=== PATIENT | female | born 1950 | race Caucasian/White ===

== ENCOUNTER 2016-05-31 23:46 | Observation (INO) | payer MEDICARE, OTHER ==
--- NOTE | ~2016-05-31 | HP ---
Unit #: [id number] #: [id number] Patient: SERENA RUGGIERO [id number] [facility] [address] [facility]. [place], [place] [address] [id number] I MR#: [id number] NAME: SERENA RUGGIERO. ROOM: 335 Age: 66 Sex: F Admission Date: 06/01/2016 : 1950 Attending Physician: Alessio Day M.D. Primary Care Physician: Shoaib Roberto M.D. HISTORY AND PHYSICAL CHIEF COMPLAINT Chest pain. HISTORY OF PRESENT ILLNESS MS. Ruggiero is a 66-year-old female with no prior cardiac history. 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 Yesterday morning at 7:30 a.m. she awoke with a headache and diarrhea as well as a steady pain in her upper mid chest radiating to her right upper chest, under her right arm. She took some aspirin and went to temple. She continued to have diarrhea all day. It was slightly better with rest, but no worse with activity. She became very worried throughout the day and then presented to [facility] emergency room at 9:06 p.m. She was given two sublingual nitroglycerin and the pain was relieved. The diarrhea continued until hood fitter today and has since resolved. (1) interview as well as record review. PRIOR CARDIAC TESTING History includes left heart catheterization in 2003 which showed normal coronaries. PAST MEDICAL HISTORY 1. Severe osteoarthritis of the knees which is debilitating. 2. Gastroesophageal reflux disease. 3. Hysterectomy. 4. Cholecystectomy. 5. Hernia repair. 6. Kidney tumor removal. SOCIAL HISTORY The patient is a 40 year smoker, but quit 8 years ago. She denies the use of alcohol or drugs. FAMILY HISTORY Mother with heart failure at age 62. Father with a brain tumor at age 70. Brothers and sisters all alive and well. ALLERGIES No known drug allergies. HOME MEDICATIONS 1. Multivitamin daily. 2. Meloxicam 15 mg daily. REVIEW OF SYSTEMS Unit #: [id number] #: [id number] Patient: SERENA RUGGIERO GENERAL: Denies any fever, chills, flu-like symptoms or unintentional weight loss. SKIN: Denies any rashes, ulcerations or wound. HEADACHES: Yesterday, but resolved. EYES: Denies any sudden change in vision. EARS: Denies any sudden change in hearing. BLEEDING: Denies epistaxis, hemoptysis, hematuria or melena. THROAT: Denies any problems swallowing. LUNGS: Denies any wheeze or cough. CHEST: Positive for pain as described in history of present illness, as well as some palpitations and "pounding" in her chest. No PND or orthopnea. GI: Denies any nausea or vomiting, but did have the diarrhea as described in history of present illness. GENITOURINARY: Has frequency urination, but no burning or urgency. EXTREMITIES: She has a constant swelling in her bilateral lower extremities for which she wears IRASEMA hose. NEUROLOGIC: Denies any numbness, tingling, seizures, stroke-like symptoms, unsteadiness, dizziness or falls. PHYSICAL EXAMINATION GENERAL: Well-developed, well-nourished, white female, in no acute distress, resting in the bed. VITAL SIGNS: Blood pressure is 131/59, heart rate 66, respirations 18, temperature 98.3, oxygen saturation 97% and weight 250 pounds. SKIN: No obvious rashes or ulcerations noted. HEENT: Eyes pupils equally round and reactive to light and accommodation. No xanthelasma. Oral, fair dentition. Moist mucous membranes. No pallor. NECK: No carotid bruits auscultated bilaterally. No jugular venous distension. SPINE: No scoliosis. CHEST: Clear to auscultation bilaterally. No wheezes, rales or rhonchi. CARDIAC: S1 and S2. No murmur, rub, gallop or lift. ABDOMEN: Soft and nontender. Positive bowel sounds. EXTREMITIES: Bilateral pedal pulses +2. No edema, but she does have her bilateral IRASEMA hose on. NEUROLOGIC: Alert and oriented time three. Speech is clear. No obvious neuro deficits. DIAGNOSTIC STUDIES IMAGING: Chest x-ray shows no active disease. LABORATORY: Troponin less than 0.03 as well as 0.05 times 2 at point of care. Sodium 140, potassium 3.7, glucose 99, BUN 23, creatinine 0.9, AST 17, ALT 15, albumin 3.7. PT 10.3, INR 1.0. Hemoglobin 14, hematocrit 42.2, platelets 182, white blood cell count 8.1. ASSESSMENT 1. Chest pain. 2. Obesity. 3. Positive tobacco abuse, former smoker. 4. Diarrhea, resolved. 5. Osteoarthritis of the knees which is severe. 6. Chronic lower extremity swelling. 7. Gastroesophageal reflux disease. PLAN Ms. Ruggiero has been evaluated by Dr. Ruiz, and feels as though this chest pain is atypical. The ACC/AHA guidelines show that she has a 4-10% risk Unit #: [id number] #: [id number] Patient: SERENA RUGGIERO for coronary artery disease. Therefore, we will add a station and an aspirin. We will complete an echocardiogram as well as a Cardiolite stress test today and make further recommendations. She will be discharged home if normal. We will also complete a TSH, hemoglobin A1 and a lipid panel this morning for further risk stratification. Dictated by Sima Armijo A.P.R.N. for Tom Ventura TD: 06/01/2016 11:00 JOB #: [id number] HISTORY AND PHYSICAL Page 1 of 1 X X HISTORY AND PHYSICAL
--- NOTE | ~2016-05-31 | TH ---
Unit #: [id number] #: [id number] Patient: SERENA WILLARD [id number] [address] [address] [id number] I MR#: [id number] NAME: SERENA WILLARD. : 1950 SEX: F STUDY DATE/TIME: 06/01/2016 UNIT: C3A PCU ROOM: 335 STUDY DESCRIPTION: Cardiolite imaging. Attending Physician: Alessio Day M.D. Primary Care Physician: Shoaib Roberto M.D. CARDIOLOGY REPORT EXAM Cardiolite imaging. PROCEDURE The patient underwent nuclear stress test and received a resting dose of 11.14 mCi and a stress dose of 28.3 mCi. On gated imaging the patient appears to have normal wall motion with a preserved ejection fraction. The patient's left ventricular ejection fraction is 67%. On perfusion imaging, comparing rest and stress images, there appears to be decreased tracer uptake seen both in rest and stress imaging involving the inferior wall, with normal wall motion on gated imaging, likely representing an artifact. CONCLUSION 1. No obvious ischemia. 2. Preserved ejection fraction. 3. ECG portion to be dictated separately. 1. Dictated by... Tom Ventura/lilian TD: 06/01/2016 14:30 JOB #: [id number] CARDIOLOGY REPORT Page 1 of 1 X DEL PANDYA MD CARDIOLOGY REPORT
--- NOTE | ~2016-05-31 | DS ---
Unit #: [id number] #: [id number] Patient: SERENA RUGGIERO [id number] [address] [place], [place] [address] [id number] I MR#: [id number] NAME: SERENA RUGGIERO. ROOM: [facility] Age: 66 Sex: F Admission Date: 06/01/2016 : 1950 Discharge Date: 06/01/2016 Attending Physician: Alessio Day M.D. Primary Care Physician: Shoaib Roberto M.D. DISCHARGE SUMMARY ADMITTING DIAGNOSES 1. Chest pain. 2. Obesity. 3. Former positive tobacco abuse. 4. Osteoarthritis. 5. Chronic lower extremity swelling. 6. Gastroesophageal reflux disease. 7. Diarrhea. DISCHARGE DIAGNOSES 1. Noncardiac chest pain, presumed noncardiac based on testing. 2. Obesity. 3. Positive tobacco abuse, former smoker. 4. Osteoarthritis of the knees. 5. Chronic lower extremity swelling. 6. Gastroesophageal reflux disease. DIAGNOSTIC DATA IMAGING: Chest x-ray which shows no active disease. CARDIOVASCULAR: Cardiolite stress test which shows no ischemia and an of 67%. Two-dimensional echocardiogram has been completed and those results are pending at discharge. LABORATORY: Hemoglobin A1c 5.1, TSH 2.74, cholesterol 129, triglycerides 52, LDL 76, HDL 43. Troponin less than 0.03 and prior to that was less than 0.05 times 2 at point of care. Sodium 140, potassium 3.2, BUN 23, creatinine 0.9, AST 17, ALT 15, albumin 3.7, PT 10.3, INR 1.0, hemoglobin 14, hematocrit 42.2, platelets 182, white blood cell count 8.1. HOSPITAL COURSE Ms. Ruggiero is a 66-year-old female who has just retired 4 months ago. She woke up yesterday morning with a steady pain in her chest as well as some headache and frequent diarrhea. This persisted all day and then she presented to the [facility] emergency room at approximately 9:06 p.m. She was treated with nitroglycerin and had complete relief of her chest pain with no recurrence. She completed a Lexiscan Cardiolite stress test today, as well as a two-dimensional echocardiogram. Her chest pain has been nonrecurrent. I discussed with her other reasons for chest pain. She is sitting up in the bed, feeling very well, eating at this time. Blood pressure 131/59, pulse 66, respiratory rate 18, temperature 98.3, 259 pounds. Unit #: [id number] #: [id number] Patient: SERENA RUGGIERO DISCHARGE MEDICATIONS 1. Multivitamin daily. 2. Meloxicam 15 mg daily. Of note, no changes have been made to her home medication list during hospitalization. DIET Previous diet. ACTIVITY As tolerated. FOLLOWUP 1. Follow-up visit will be with Dr. Day in the next six weeks. 2. She will also follow up with Dr. Roberto for noncardiac chest pain. Dictated by... Ender RitchieP.R.NRachel for Tom Ventura/lilian TD: 06/02/2016 08:48 JOB #: [id number] DISCHARGE SUMMARY Page 1 of 1 X X DISCHARGE SUMMARY
--- NOTE | ~2016-05-31 | EKG ---
PATIENT: SERENA WILLARD UNIT #: [id number] Ventricular Rate: 76 BPM Atrial Rate: 76 BPM P-R Interval: 184 ms QRS Duration: 82 ms Q-T Interval: 388 ms QTC Calculation(Bezet): 436 ms P [place]: 20 degrees Calculated R [place]: 70 degrees Calculated T [place]: 21 degrees Diagnosis Line: Normal sinus rhythm Diagnosis Line: Possible Left atrial enlargement Diagnosis Line: Cannot rule out Anterior infarct , age Diagnosis Line: undetermined Diagnosis Line: Abnormal ECG Diagnosis Line: When compared with ECG of 31-MAY-2016 21:32, Diagnosis Line: (unconfirmed) Diagnosis Line: QRS duration has decreased Diagnosis Line: Minimal criteria for Anterior infarct are now Diagnosis Line: Present Diagnosis Line: ST no longer elevated in Inferior leads Diagnosis Line: ST no longer elevated in Anterior leads Diagnosis Line: ST no longer depressed in Lateral leads Diagnosis Line: Confirmed by NOEL MOTLEY MD ([id number]) on 06/02/2016 Diagnosis Line: 5:25:51 AM INTERPRETING MD: TOLU LEE
--- NOTE | ~2016-05-31 | BMI ---
[facility] Nutrition Therapy DATE: 06/01/16 Patient: SERENA WILLARD Physician: EL Address: [address] [place] [address] Room/Bed: [address] [place] [address], Zip: [place] [address] Admit Date: 06/01/16 Date of : [birth year] Height: 5 4 Weight: 259 117.9 HIGH BMI NOTE: ANTHROPOMETRICS: HT: 64" WT: 117.9 KG BMI: 44.6 INTERVENTION: 1. HEART HEALTHY DIET RECOMMENDATIONS: 1. CONTINUE CURRENT DIET IN ORDER TO PROMOTE GRADUAL WEIGHT LOSS TOWARDS HEALTHY BMI RANGE. Respectfully, JHON LIM RD, LD Food and Nutritional Services [facility] cc: client file
--- NOTE | ~2016-05-31 | ST ---
Unit #: [id number] #: [id number] Patient: SERENA WILLARD [id number] [address] [place], [place] [address] [id number] I MR#: [id number] NAME: SERENA WILLARD. : 1950 SEX: F STUDY DATE/TIME: 06/01/2016 UNIT: C3A PCU ROOM: 335 STUDY DESCRIPTION: Cardiac stress test. Attending Physician: Alessio Day M.D. Primary Care Physician: Shoaib Roberto M.D. CARDIOLOGY REPORT EXAM Cardiac stress test. INDICATION FOR STUDY Chest discomfort. SUMMARY The patient underwent Lexiscan protocol. The patient's resting heart rate was 56 beats per minute, which increased to 90 beats per minute. The patient's heart rate represents 58% of the maximum age predicted heart rate. The patient's resting blood pressure is 126/84 mmHg, which increased to 168/100 mmHg. The patient's resting ECG shows normal sinus rhythm with normal ST segments. The patient's stress ECG shows sinus rhythm with preserved ST segments. There is no supraventricular or ventricular ectopy noted. There are no pauses noted. CONCLUSION 1. Negative ECG portion of the Lexiscan study for ischemia. 2. Perfusion imaging to be dictated separately. Dictated by... Tom Ventura/gz TD: 06/01/2016 14:25 JOB #: [id number] CARDIOLOGY REPORT Page 1 of 1 X DEL PANDYA MD CARDIOLOGY REPORT
--- NOTE | ~2016-05-31 | CR72 ---
[facility] A Service of [facility] RADIOLOGY TEXT RESULTS PATIENT: SERENA WILLARD LOCATION: [facility] 335- : [birth year] UNIT #: [id number] AGE: [address]: Mo Day MD SEX: F ORDER DR: [id number] [facility] [address] [facility]. [place], [place] [address] [id number] I MR#: [id number] Acc #: [id number] NAME: SERENA WILLARD. : 1950 SEX: F STUDY DATE/TIME: 06/01/2016 0:22 UNIT: [address] ROOM: [facility] STUDY DESCRIPTION: CR Chest Single View Portable Attending Physician: Mo Day Ordering Physician: Jag Dickinson M.D. Primary Care Physician: Shoaib Roberto M.D. MEDICAL IMAGING REPORT This report is preliminary unless electronic signature is present EXAM Portable chest HISTORY Chest pain and shortness of air beginning tonight. COMPARISON 03/04/2006. FINDINGS Portable view of the chest was obtained. Heart size and vascularity are normal. The lungs are clear and the bones are normal. IMPRESSION No active disease. Dictated by... Rene Thomas M.D. THIS IS AN ELECTRONICALLY VERIFIED REPORT Rene Thomas M.D. at 06/01/2016 1:23 PM ADI/meghann TD: 06/01/2016 09:02 JOB #: [id number] MEDICAL IMAGING REPORT Page 1 of 1 COPY
[~2016-05-31 23:46] MED LIST: COLACE PO; GLUCOSAMINE CHON; TYLOX 5/500 CAP1 CAP PO
[2016-06-01 00:44] LABS: BASOPHIL% 0.1 % (0-2.5); EOSINOPHIL# 0.1 X10e3 (0-0.7); HEMATOCRIT 42.2 % (35.0-45.0); LYMPHOCYTE# 1.4 X10e3 (1.0-3.5); LYMPHOCYTE% 17.7 % (17.0-45.0); MEAN CELL VOLUME 88.3 FL (83-96); MEAN CORPUSCULAR HEMOGLOBIN 29.3 PG (28-34); MEAN CORPUSCULAR HGB CONC 33.2 g/dL (30-36); MEAN PLATELET VOLUME 7.8 FL (6.5-11.5); MONOCYTE# 0.5 X10e3 (0-1.0); MONOCYTE% 6.1 % (3.0-12.0); NEUTROPHIL# 6.1 X10e3 (1.5-7.1); NEUTROPHIL% 75.1 % (40-75); PLATELET COUNT 182 X10e3 (140-420); RED BLOOD COUNT 4.78 X10e (3.90-5.30); RED CELL DISTRIBUTION WIDTH 13.5 % (11.0-15.5); WHITE BLOOD COUNT 8.1 X10e3 (4.0-10.5)
[2016-06-01 00:50] LABS: DIFF IND NO
[2016-06-01 00:55] LABS: POC - CKMB <1.0 ng/mL (0.0-7.9); POC - TROPONIN <0.05 ng/mL (<=0.05)
[2016-06-01 00:59] LABS: PARTIAL THROMBOPLASTIN TIME 25.9 SECONDS (23.5-31.3); PROTHROMBIN TIME (PATIENT) 10.3 SECONDS (9.6-11.5)
[2016-06-01 01:10] LABS: ALBUMIN SERUM 3.7 g/dL (3.5-5.0); BILIRUBIN, DIRECT 0.2 mg/dL (0.0-0.2); BILIRUBIN,INDIRECT 0.7 mg/dL (0.0-0.9); BILIRUBIN,TOTAL 0.9 mg/dL (0.2-2.0); BUN/CREATININE RATIO 25.55; CALCIUM SERUM 8.7 mg/dL (8.4-10.2); CREATININE SERUM 0.9 mg/dL (0.6-1.4); GLOM FILT RATE Estimated 67.1 mL/min (>60); POTASSIUM 3.7 mmol/L (3.5-5.1); PROTEIN TOTAL SERUM 6.4 g/dL (6.0-8.3)
[2016-06-01 02:06] LABS: POC - CKMB <1.0 ng/mL (0.0-7.9); POC - TROPONIN <0.05 ng/mL (<=0.05)
[2016-06-01] MEDS ORDERED: MULTI VITAMIN1 EACH PO (02:12)
[2016-06-01] MEDS ORDERED: MELOXICAM15 MG PO (02:12)
[2016-06-01 08:23] LABS: CK TOTAL 52 IU/L (26-140)
[2016-06-01 11:24] LABS: CHOLESTEROL 129 mg/dL (0-200); HDL CHOLESTEROL 43 mg/dL (35-95); LDL CHOLESTEROL 76 mg/dL (-130); LDL/HDL RATIO 2 RATIO (0-4); TRIGLYCERIDES 52 mg/dL (10-160)
== END 2016-06-01 16:24 | disposition home or self-care (01) ==
LOC: CED 23:46 → CEDOF 06-01 02:15 → C3A PCU 06-01 07:56
PROVIDERS: Emergency Medicine; Internal Medicine Cardiovascular Disease
DX: R07.89 Other chest pain (principal); E66.9 Obesity, unspecified; R19.7 Diarrhea, unspecified; M17.0 Bilateral primary osteoarthritis of knee; Z87.891 Personal history of nicotine dependence; M79.89 Other specified soft tissue disorders; K21.9 Gastro-esophageal reflux disease without esophagitis; Z90.49 Acquired absence of other specified parts of digestive tract; Z82.49 Family history of ischemic heart disease and other diseases of the circulatory system
CPT/HCPCS: 36415; 71010; 78452; 80048; 80061; 80076; 82550; 82553; 83036; 84443; 84484; 85025; 85610; 85730; 93005; 93017; 93306; 99285; A9500; G0378; J2785